=== PATIENT | male | born 1980 | race Caucasian/White ===

== ENCOUNTER 2017-09-01 14:09 | Emergency (ER) | payer MEDICAID, SELFPAY ==
[2017-09-01 14:40] VITALS: BP 115/88; PULSE 75; RESP 18; TEMP 37.1; O2SAT 98; BMI 21.1
[2017-09-01 14:54] LABS: UTC Influenza A Antigen Negative (Negative); UTC Influenza B Antigen Negative (Negative)
--- NOTE | 2017-09-01 15:25 | HMH.EDUTC ---
[facility] [place] Disposition Clinical Impression: Upper respiratory infection Qualifiers: URI type: unspecified URI Qualified Code(s): J06.9 - Acute upper respiratory infection, unspecified Disposition: Home, Self-Care Condition on Discharge: Good Instructions: Sore Throat, Cough Additional Instructions: * Monitor Temp. Tylenol and/or Ibuprofen as needed. ER if fever is no less than 101 despite alternating Tylenol and Ibuprofen * Encourage fluids, water, Gatorade, powerade, pedialyte if /toddler/or child * Warm salt water gargles for throat irritation *Warm fluids *Sore throat lozenges *Sleep elevated *humidifier or vaporizer Lots of rest Increase fluids, water, Gatorade, powerade *Flonase 2 sprays each nostril daily but may take 2-3 days to notice improvement with it *Bromfed may cause drowsiness. Know how it effect you or your child. Before driving, caring for small children or sending your child to school *Your throat swab was sent to lab for culture. Those results area typically sent to your primary care physician. Be sure to follow up in 2-3 days if no improvement so they can review those results and treat if necessary If you dont have primary care I recommend you get one, but in the mean time you will have to return to a walk in clinic Follow up IMMEDIATELY for new or worsening of symptoms OR no noticeable improvement over the next 48-72 hours. 911 immediately for any life threatening symptoms such as chest pain or difficulty breathing Prescriptions: Brompheniramine/Pseudoephed/Dm [Bromfed DM Cough Syrup 5mL] 10 ml PO Q4H #250 syrup Fluticasone Propionate [Flonase 50mcg nasal spray 16gm] 2 spr NS DAILY #1 bottle Referrals: Fabiana Kenney PA [Primary Care Provider] - Forms: Work/School Release Time of Disposition: 15:41 Medical Decision Making - Medical Records Medical records reviewed: Yes: I reviewed the patient's medical records. Vital Signs: 09/01/17 14:40 Temperature 98.8 F Temperature Source Temporal Artery Scan Pulse Rate [Left Brachial] 75 Respiratory Rate 18 Blood Pressure [Left Arm] 115/88 Blood Pressure Mean [Left Arm] 97 Blood Pressure Source [Left Arm] Automatic Cuff Blood Pressure Position [Left Arm] Sitting 02 Sat by Pulse Oximetry 98 Oxygen Delivery Method Room Air - Lab Data Lab Results 09/01/17 14:34: Influenza Type A Ag Negative, Influenza Type B Ag Negative Orders (Tests/Meds): ED MEDICATIONS Discontinued Medications Generic Name Dose Route Start Last Admin Trade Name [place] PRN Reason Stop Dose Admin Ceftriaxone Sodium 1 gm 09/01/17 15:38 Rocephin 1gm Vial IM 09/01/17 15:39 ONCE ONE Lidocaine HCl 0 ml 09/01/17 15:38 Lidocaine 1% 10ml Mdv IM 09/01/17 15:39 ONCE ONE Methylprednisolone Sodium Succinate 125 mg 09/01/17 15:38 Solu-Medrol 125mg/2ml Vial IM 09/01/17 15:39 ONCE ONE - Joshua Inquiry Pt receiving controlled substance: No Joshua was queried for this patient: No [facility] [place] HPI - General Stated complaint: fever,aches all over,hurts to breathe Mode of Arrival: Ambulatory Source of Information: Patient Limitations: No Limitations Description of Symptoms (Recalled from Triage Doc. by RN): C/O fever and bodyaches since Saturday HEENT Symptoms (Recalled from RN notes): No Resp Symptoms (Recalled from RN notes): No Skin Symptoms (Recalled from RN notes): No MS Symptoms (Recalled from RN notes): Yes (bodyaches) Functional Status (Recalled from RN notes): n/a - History of Present Illness Provider Complaint: Patient state that he has been having flu like symptoms since Saturday that has continued to get worse State that he thinks he may have the flu State that he has been having sore throat body aches, headache and just wanting to lay around State that he feels like he is having drainage in his throat that is making him cough so he came in to make sure he didn't have the flu - Related Data Previous Rx's Medicati
[2017-09-01 16:09] VITALS: BP 115/88; PULSE 75; RESP 18; TEMP 37.1; O2SAT 98
== END 2017-09-01 16:10 | disposition home or self-care (01) ==
PROVIDERS: Emergency Provider Nurse Practitioner; Family Provider Physician Assistant; PCP Physician Assistant
DX: J06.9 Acute upper respiratory infection, unspecified (principal); Z88.6 Allergy status to analgesic agent; Z88.5 Allergy status to narcotic agent; Z91.09 Other allergy status, other than to drugs and biological substances
CPT/HCPCS: 87804; 96372; 99203

== ENCOUNTER 2017-10-05 20:05 | Emergency (ER) | payer MEDICAID, SELFPAY ==
[2017-10-05 20:30] VITALS: BP 114/80; PULSE 82; RESP 18; TEMP 37.1; O2SAT 98; BMI 21.1
[2017-10-05 20:41] LABS: Apearance,Urine Clear (Clear); Blood, Urine 4+ (Negative); Color,Urine Yellow (Yellow); Glucose,Urine (UA) Negative (Negative); Ketones,Urine Negative (Negative); Protein,Urine Negative (Negative)
[2017-10-05 20:42] LABS: Bilirubin,Urine Negative (Negative); UTC Leukocyte Esterase,Urine Negative (Negative); UTC Nitrate,Urine Positive (Negative); Urobilinogen,Urine 0.2 EU/dl (0.2)
--- NOTE | 2017-10-05 20:55 | HMH.EDUTC ---
[facility] [place] Clinical Impression: Dysuria, Exposure to trichomonas Disposition: Home, Self-Care Condition on Discharge: Good Instructions: DI for Dysuria -- Adult, DI for Trichomoniasis Additional Instructions: * Based on your exposure, you were treated for trich but also based on your symptoms, you were treated for gonorrhea and chlamydia as well, other sexually transmitted diseases. It can take up to one week to have your results back for the sexually transmitted diseases but the urine culture and test for trich should be available on Saturday. Be SURE to follow up with primary care as discussed. Avoid intercourse until that follow up when you get results. Referrals: Fabiana Kenney PA [Primary Care Provider] - (Call Saturday and schedule follow up appt. Tell them you were in [facility], treated for dysuria after exposure to sexually transmitted disease but need to follow up for those results and urine culture results. ) Time of Disposition: 21:07 Medical Decision Making Vital Signs: 10/05/17 20:30 Temperature 98.7 F Temperature Source Temporal Artery Scan Pulse Rate [Right Radial] 82 Respiratory Rate 18 Blood Pressure [Right Arm] 114/80 Blood Pressure Mean [Right Arm] 91 02 Sat by Pulse Oximetry 98 Oxygen Delivery Method Room Air - Lab Data Lab results reviewed: Yes: I reviewed the patient's lab results. Lab Results 10/05/17 20:34: Urine Color Yellow, Urine Appearance Clear, Urine pH 7.0, Ur Specific [place] 1.010, Urine Protein Negative, Urine Glucose (UA) Negative, Urine Ketones Negative, Urine Blood 4+, Urine Nitrate Positive A, Urine Bilirubin Negative, Urine Urobilinogen 0.2, Ur Leukocyte Esterase Negative LOTUS, wet prep, Gc/ch, urine culture all pending. Pt to follow up with PCP for results on Saturday Orders (Tests/Meds): ED MEDICATIONS Discontinued Medications Generic Name Dose Route Start Last Admin Trade Name Freq PRN Reason Stop Dose Admin Azithromycin 1,000 mg 10/05/17 20:57 Zithromax 250mg Tablet PO 10/05/17 20:58 ONCE ONE Protocol Ceftriaxone Sodium 1 gm 10/05/17 20:57 Rocephin 1gm Vial IM 10/05/17 20:58 ONCE ONE Lidocaine HCl 0 ml 10/05/17 20:57 Lidocaine 1% 10ml Mdv IM 10/05/17 20:58 ONCE ONE Metronidazole 2,000 mg 10/05/17 21:01 Metronidazole 500mg Tablet PO 10/05/17 21:02 ONCE ONE Protocol ORDERS Category Date Time Status Urine Culture Stat Micro 10/05/17 21:02 Ordered - Joshua Inquiry Pt receiving controlled substance: No [facility] [place] HPI - General Stated complaint: burning when urinating Time Seen by Provider: 10/05/17 20:45 Mode of Arrival: Family Vehicle Source of Information: Patient Limitations: No Limitations Description of Symptoms (Recalled from Triage Doc. by RN): PT C/O FREQUENCY AND SOME BURNING WITH URINATION THAT STARTED 2-3 DAYS AGO. PT STATES HE IS HAVING MILD FLANK PAIN. HEENT Symptoms (Recalled from RN notes): No Resp Symptoms (Recalled from RN notes): No Skin Symptoms (Recalled from RN notes): No MS Symptoms (Recalled from RN notes): Yes (MILD FLANK PAIN) Functional Status (Recalled from RN notes): NA - History of Present Illness Provider Complaint: c/o dysuria x 2-3 days with mild intermittent flank pain. Hx of kidney stones but states that this is not similiar. Urinary frequency, hesitancy. No change in urine characteristics. Sexually active. Unprotected. On female only x 5 years. Reports she tested positive for trich 5-7 days ago he thinks but they haven't been sexually active since. No treatment before arrival. - Related Data Previous Rx's Medication Instructions Recorded Brompheniramine/Pseudoephed/Dm 10 ml PO Q4H #250 syrup 09/01/17 [Bromfed DM Cough Syrup 5mL] Fluticasone Propionate [Flonase 2 spr NS DAILY #1 bottle 09/01/17 50mcg nasal spray 16gm] Allergies Allergy/AdvReac Type Severity Reaction Status Date / Time acetaminophen Allergy Unknown Verifi
--- NOTE | 2017-10-05 21:02 | ED_ITS ---
[facility] [place] Disposition Clinical Impression: Dysuria, Exposure to trichomonas Disposition: Home, Self-Care Condition on Discharge: Good Instructions: DI for Dysuria -- Adult, DI for Trichomoniasis Additional Instructions: * Based on your exposure, you were treated for trich but also based on your symptoms, you were treated for gonorrhea and chlamydia as well, other sexually transmitted diseases. It can take up to one week to have your results back for the sexually transmitted diseases but the urine culture and test for trich should be available on Saturday. Be SURE to follow up with primary care as discussed. Avoid intercourse until that follow up when you get results. Referrals: Fabiana Kenney PA [Primary Care Provider] - (Call Saturday and schedule follow up appt. Tell them you were in [place], treated for dysuria after exposure to sexually transmitted disease but need to follow up for those results and urine culture results. ) Time of Disposition: 21:07 Medical Decision Making Vital Signs: 10/05/17 20:30 Temperature 98.7 F Temperature Source Temporal Artery Scan Pulse Rate [Right Radial] 82 Respiratory Rate 18 Blood Pressure [Right Arm] 114/80 Blood Pressure Mean [Right Arm] 91 02 Sat by Pulse Oximetry 98 Oxygen Delivery Method Room Air - Lab Data Lab results reviewed: Yes: I reviewed the patient's lab results. Lab Results 10/05/17 20:34: Urine Color Yellow, Urine Appearance Clear, Urine pH 7.0, Ur Specific [place] 1.010, Urine Protein Negative, Urine Glucose (UA) Negative, Urine Ketones Negative, Urine Blood 4+, Urine Nitrate Positive A, Urine Bilirubin Negative, Urine Urobilinogen 0.2, Ur Leukocyte Esterase Negative LOTUS, wet prep, Gc/ch, urine culture all pending. Pt to follow up with PCP for results on Saturday Orders (Tests/Meds): ED MEDICATIONS Discontinued Medications Generic Name Dose Route Start Last Admin Trade Name Freq PRN Reason Stop Dose Admin Azithromycin 1,000 mg 10/05/17 20:57 Zithromax 250mg Tablet PO 10/05/17 20:58 ONCE ONE Protocol Ceftriaxone Sodium 1 gm 10/05/17 20:57 Rocephin 1gm Vial IM 10/05/17 20:58 ONCE ONE Lidocaine HCl 0 ml 10/05/17 20:57 Lidocaine 1% 10ml Mdv IM 10/05/17 20:58 ONCE ONE Metronidazole 2,000 mg 10/05/17 21:01 Metronidazole 500mg Tablet PO 10/05/17 21:02 ONCE ONE Protocol ORDERS Category Date Time Status Urine Culture Stat Micro 10/05/17 21:02 Ordered - Joshua Inquiry Pt receiving controlled substance: No [facility] [place] HPI - General Stated complaint: burning when urinating Time Seen by Provider: 10/05/17 20:45 Mode of Arrival: Family Vehicle Source of Information: Patient Limitations: No Limitations Description of Symptoms (Recalled from Triage Doc. by RN): PT C/O FREQUENCY AND SOME BURNING WITH URINATION THAT STARTED 2-3 DAYS AGO. PT STATES HE IS HAVING MILD FLANK PAIN. HEENT Symptoms (Recalled from RN notes): No Resp Symptoms (Recalled from RN notes): No Skin Symptoms (Recalled from RN notes): No MS Symptoms (Recalled from RN notes): Yes (MILD FLANK PAIN) Functional Status (Recalled from RN notes): NA - History of Present Illness Provider Complaint: c/o dysuria x 2-3 days with mild intermittent flank pain. Hx of kidney stones but states that this is not similiar.
[2017-10-05 21:39] VITALS: BP 110/82; PULSE 79; RESP 18; TEMP 37; O2SAT 99
[2017-10-10 11:58] LABS: Neisseria gonorrhoeae, NAA Negative (Negative)
== END 2017-10-05 21:47 | disposition home or self-care (01) ==
PROVIDERS: Emergency Provider Nurse Practitioner Family; Family Provider Physician Assistant; PCP Physician Assistant
DX: R30.0 Dysuria (principal); Z20.2 Contact with and (suspected) exposure to infections with a predominantly sexual mode of transmission; F17.210 Nicotine dependence, cigarettes, uncomplicated; Z88.6 Allergy status to analgesic agent; Z88.8 Allergy status to other drugs, medicaments and biological substances
CPT/HCPCS: 81003; 87086; 87210; 87220; 87491; 87591; 96372; 99202

== ENCOUNTER 2017-10-27 17:53 | Emergency (ER) | payer MEDICAID, SELFPAY ==
[2017-10-27 18:04] VITALS: BP 138/79; PULSE 80; RESP 20; TEMP 37.3; O2SAT 100; BMI 20.4
[2017-10-27 18:40] LABS: Apearance,Urine Clear (Clear); Color,Urine Yellow (Yellow); PH,Urine 6.5 (5.0-8.5)
[2017-10-27 18:41] LABS: Bilirubin,Urine Negative (Negative); Blood, Urine 3+ (Negative); Glucose,Urine (UA) Negative (Negative); Ketones,Urine Negative (Negative); Protein,Urine Negative (Negative); UTC Leukocyte Esterase,Urine Negative (Negative); UTC Nitrate,Urine Positive (Negative); Urobilinogen,Urine 0.2 EU/dl (0.2)
--- NOTE | 2017-10-27 18:44 | HMH.EDUTC ---
[facility] [place] Disposition Clinical Impression: UTI (urinary tract infection) Qualifiers: Urinary tract infection type: site unspecified Hematuria presence: with hematuria Qualified Code(s): N39.0 - Urinary tract infection, site not specified; R31.9 - Hematuria, unspecified Disposition: Home, Self-Care Condition on Discharge: Good Instructions: Urinary Tract Infection Additional Instructions: Stop taking Ciprofloxin and began taking Bactrim as prescribed Follow up with family doctor in 24-48 hours for results of urine culture to make sure that you are on the appropriate antibiotic Straight to ER if any worsening of pain, blood in urine or fever that is not easily controlled with medication REturn if needed Prescriptions: Sulfamethoxazole/Trimethoprim [Bactrim DS tablet] 1 each PO BID #20 tab Referrals: Fabiana Kenney PA [Primary Care Provider] - Time of Disposition: 19:12 Medical Decision Making - Medical Records Medical records reviewed: Yes: I reviewed the patient's medical records. - Joshua Inquiry Pt receiving controlled substance: No Joshua was queried for this patient: No Vital Signs: 10/27/17 18:04 Temperature 99.2 F Temperature Source Temporal Artery Scan Pulse Rate [Right Brachial] 80 Respiratory Rate 20 Blood Pressure [Right Arm] 138/79 Blood Pressure Mean [Right Arm] 98 Blood Pressure Source [Right Arm] Automatic Cuff Blood Pressure Position [Right Arm] Sitting 02 Sat by Pulse Oximetry 100 Oxygen Delivery Method Room Air - Lab Data Lab results reviewed: Yes: I reviewed the patient's lab results. Lab Results 10/27/17 17:58: Urine Color Yellow, Urine Appearance Clear, Urine pH 6.5, Ur Specific [place] 1.020, Urine Protein Negative, Urine Glucose (UA) Negative, Urine Ketones Negative, Urine Blood 3+, Urine Nitrate Positive A, Urine Bilirubin Negative, Urine Urobilinogen 0.2, Ur Leukocyte Esterase Negative - Reevaluation(s) Time: 18:59 Reevaluation #1: State that cipro is upseting his stomach and he doesn't feel like its working Still having burning with Urination Urine collected and sent to lab for culture, patient advised to follow up with family doctor in 24-48 hours for urine culture results and further evaluation advised to stop taking the Cipro and began taking Bactrim for UTI Patient has ultrasound scheduled awaiting appointment [facility] [place] HPI - General Stated complaint: burning when urinating Time Seen by Provider: 10/27/17 18:15 Mode of Arrival: Family Vehicle Source of Information: Patient Limitations: No Limitations Description of Symptoms (Recalled from Triage Doc. by RN): C/O PELVIC PAIN AND PAINFUL URINATION. BEING TREATED FOR UTI SINCE 10/24/17 HEENT Symptoms (Recalled from RN notes): No Resp Symptoms (Recalled from RN notes): No Skin Symptoms (Recalled from RN notes): No MS Symptoms (Recalled from RN notes): No Functional Status (Recalled from RN notes): N/A - History of Present Illness Provider Complaint: Patient state that he has been having burning with urination and was seen and treated by family doctor State that he has been taking the medication as it was prescribed State that he has taken all the medication that turned his pee orange and wanted to know if he needed more. State that also he sometimes has pain in his groin area that is worse when he walks States that that pain is not there all the time it just comes and goes State that it is not hurting now though - Related Data Home Medications Medication Instructions Recorded Confirmed Fluoxetine HCl [Prozac 20mg 20 mg PO DAILY 10/27/17 10/27/17 Capsule] Naproxen 500 mg PO Q12H 10/27/17 10/27/17 Previous Rx's Medication Instructions Recorded phenazopyridine 200 mg tablet 200 mg PO BID PRN #10 tab 10/24/17 Sulfamethoxazole/Trimethoprim 1 each PO BID #20 tab 10/27/17 [Bactrim DS tablet] Allergies Allergy/AdvReac Type Severity Reaction Status Date / Time acetaminophen Allergy Unknown Verified
[2017-10-27 19:17] VITALS: BP 132/72; PULSE 78; RESP 20; TEMP 37.2; O2SAT 100
== END 2017-10-27 19:18 | disposition home or self-care (01) ==
PROVIDERS: Emergency Provider Nurse Practitioner; Family Provider Physician Assistant; PCP Physician Assistant
DX: N39.0 Urinary tract infection, site not specified (principal); F17.210 Nicotine dependence, cigarettes, uncomplicated; Z88.6 Allergy status to analgesic agent
CPT/HCPCS: 81003; 87086; 99201

== ENCOUNTER → 2017-10-31 11:11 | Outpatient (CLI) | payer MEDICAID, SELFPAY ==
[2017-10-31 17:50] LABS: Basophils % 0.5 % (0.1-2.0); Eosinophils # 0.1 K/mm3 (0.0-0.4); Eosinophils % 1.6 % (0.1-12.0); Hemoglobin 13.2 g/dL (14.1-18.0); Lymphocytes # 1.2 K/mm3 (0.7-4.5); Lymphocytes % 26.6 K/mm3 (10-50); Mean Corpuscular HGB Conc 32.9 g/dL (31.8-35.4); Mean Corpuscular Hemoglobin 31.2 pg (27.0-31.2); Mean Corpuscular Volume 94.9 fl (80-94); Mean Platelet Volume 7.9 fl (7.4-10.4); Monocytes # 0.4 K/mm3 (0.1-1.0); Monocytes % 8.4 % (1.7-9.3); Neutrophils # 2.9 K/mm3 (1.8-7.8); Neutrophils % 62.9 % (37.0-80.0); Platelet Count 209 K/mm3 (142-424); Red Blood Count 4.21 M/mm3 (4.60-6.20); White Blood Count 4.6 K/mm3 (4.8-10.8)
[2017-10-31 18:30] LABS: Alanine Aminotransferase 40 U/L (12-78); Albumin/Globulin Ratio 1.3 (1.1-1.8); Alkaline Phosphatase 59 U/L (46-116); Anion Gap 10.3 mEq/L (5-15); Aspartate Amino Transferase 30 U/L (15-37); Bilirubin,Total 0.5 mg/dL (0.2-1.0); Blood Urea Nitrogen 12 mg/dL (7-18); Calcium 8.9 mg/dL (8.5-10.1); Carbon Dioxide 29 mmol/L (21.0-32.0); Chloride 103 mmol/L (98-107); Creatinine,Serum 0.79 mg/dL (0.70-1.30); Estimated Glomerular Filt Rate 110 ml/min (>60); GFR (African American) 134 ML/MIN (>60); Globulin 3.2 gm/dl (1.3-3.2); Glucose 98 mg/dL (74-106); Potassium 4.3 mmoL/L (3.5-5.1); Sodium 138 mmol/L (136-145); Total Protein,Serum 7.2 gm/dL (6.4-8.2)
[2017-11-02 18:39] LABS: Rapid Plasma Reagin Ab Titer Non Reactive (NonRea<1:1)
== END ==
PROVIDERS: Visit Provider Physician Assistant
DX: R30.0 Dysuria (principal)
CPT/HCPCS: 80053; 85025; 86592

== ENCOUNTER → 2017-11-08 12:58 | Outpatient (CLI) | payer MEDICAID, SELFPAY ==
--- NOTE | 2017-11-08 13:02 | US_ITS ---
US kidney retroperitoneal comp Ordering Physician: SYDNI Ferraro Patient Age: 37 years: Male HISTORY: ITS.REASON: dysuriaThis area history of stones Hematuria TECHNIQUE: Ultrasound kidneys COMPARISON : CT abdomen pelvis 12/29/2016 FINDINGS No hydronephrosis nor mass in either kidney. No obstruction evident. Good color Doppler flow to both kidneys. Normal upper normal echogenicity of cortex within normal limits. No good evidence of kidney stones nor obstruction on today's study.. Small punctate kidney stones noted on prior December 2016 CT. Today's ultrasound shows no definitive echogenic stone. The other only question possible small 2 mm stone towards lower pole calyx on the on one image but this is equivocal and not confirmed on other images of the same region.. RIGHT KIDNEY: 12 cm length x 3.5 cm x 6.2 cm wide. Gross Estimate of volume 1 35-mL by ultrasound algorithm LEFT KIDNEY 10.6 cm length as 5 cm AP x 4.5 cm wide. Gross estimate of volume 1 26-mL by ultrasound algorithm ==== IMPRESSION: ====== 1. Kidneys appear normal in size with no hydronephrosis nor mass. No acute findings. 2. I see no definitive echogenic stones. Note: There was one image with questionable echogenic area which corresponds with a upper normal calyx at lower pole left kidney, seen on one image only in this does not persist on other views. Thus doubt of is real finding & Doubt of significance
== END ==
PROVIDERS: Family Provider Physician Assistant; PCP Physician Assistant; Visit Provider Physician Assistant
DX: R30.9 Painful micturition, unspecified (principal)
CPT/HCPCS: 76770

== ENCOUNTER 2020-01-01 12:09 | Emergency (ER) | payer MEDICAID, SELFPAY ==
[2020-01-01 12:19] VITALS: BP 113/83; PULSE 102; RESP 18; TEMP 36.7; O2SAT 99; BMI 19.8
--- NOTE | 2020-01-01 12:23 | HMH.EDGENADL ---
ED Disposition Clinical Impression: Occupational exposure to chemicals, Impacted cerumen of both ears, Acute chemical bronchitis, Nasopharyngitis Disposition: Home, Self-Care Condition on Discharge: Good Additional Instructions: Discuss your symptoms with your employer, they seem to be related to inhalation of primer vapors and your mask. Follow-up with your primary care provider if symptoms persist. Follow-up with ENT, Dr. Rowan, for wax impactions in your ears. Referrals: Fabiana Kenney PA [Primary Care Provider] - Rodri Rowan MD [Staff Physician] - - Critical Care Critical Care Time: No Attestation: On , the high probability of a clinically significant, sudden or life threatening deterioration of the following system(s) required my full and direct attention, intervention and personal management. The time I documented below is in addition to time spent performing reported procedures but includes the following listed in this critical care notation. Medical Decision Making - Joshua Inquiry Pt receiving controlled substance: No Vital Signs: 01/01/20 12:19 Temperature 98.1 F Temperature Source Oral Pulse Rate [Right Radial] 102 H Respiratory Rate 18 Blood Pressure [Right Arm] 113/83 Blood Pressure Mean [Right Arm] 93 Blood Pressure Source [Right Arm] Automatic Cuff Blood Pressure Position [Right Arm] Sitting 02 Sat by Pulse Oximetry 99 Oxygen Delivery Method Room Air General Adult HPI - General Stated complaint: burn in lungs and nose Time Seen by Provider: 01/01/20 12:23 - History of Present Illness HPI narrative: The patient complains of a burning sensation in his nose, throat, and lungs for 1 week. He relates it to occurring when he puts on his mask at work and being exposed to primer fumes at work. He has been having to wear a mask since the COVID pandemic began. He is concerned about COVID. He does not have fever, cough, or rhinorrhea. He says his ears have been hurting. No known specific exposure to COVID or other illnesses. - Related Data Allergies Allergy/AdvReac Type Severity Reaction Status Date / Time acetaminophen Allergy Unknown Verified 06/08/18 19:37 [From DARVOCET-N] codeine [CODEINE] Allergy Unknown Verified 06/08/18 19:37 etodolac [ETODOLAC] Allergy Unknown Verified 06/08/18 19:37 naproxen [From NAPROSYN] Allergy Unknown Verified 06/08/18 19:37 propoxyphene Allergy Unknown Verified 06/08/18 19:37 [From DARVOCET-N] tramadol [TRAMADOL] Allergy Unknown Verified 06/08/18 19:37 [facility] History - Hepatitis A Screen Attestation statement:: This patient has been screened for Hepatitis A risk factors. I have reviewed the patient's past medical history: Yes Medical History: Denies:: Cancer, Diabetes Mellitus Type 1, Diabetes Mellitus Type 2, Hypertension, MRSA Other Medical History: Reports: Other Other Surgeries: Yes: Other Amputation: No Fractures: Yes (ARM) - Social History Smoking Status: Current every day smoker Tobacco Type: cigarettes # Packs/Day (cigarettes): 1 Alcohol Intake: never Substance Use Type: denies use Occupational Status: other Housing: apartment Family Hx:: No significant family history ROS Obtained: Yes All systems reviewed & no additional complaints - Constitutional Constitutional: Denies fever(s) - ENT Ears, Nose, Mouth, and Throat: Reports as per HPI, Reports otalgia - Respiratory Respiratory: No cough, Yes other ( Lungs burn ) Physical Exam - General General appearance: alert, in no apparent distress - Head Head exam: atraumatic, normocephalic - Eye Eye exam: Present: normal appearance, PERRL, EOMI - ENT ENT exam: Present: normal oropharynx, mucous membranes moist, other (Bilateral cerumen impactions) - Neck Neck exam: Present: normal inspection, full ROM, trachea midline - Chest Chest inspection: Present: normal inspection, symmetric chest wall rise - Respiratory Respiratory exam: Presen
[2020-01-01 12:50] VITALS: BP 123/87; PULSE 85; RESP 20; TEMP 36.8; O2SAT 98
== END 2020-01-01 12:51 | disposition home or self-care (01) ==
PROVIDERS: Emergency Provider Emergency Medicine; PCP Physician Assistant
DX: J68.0 Bronchitis and pneumonitis due to chemicals, gases, fumes and vapors (principal); J00 Acute nasopharyngitis [common cold]; Z77.098 Contact with and (suspected) exposure to other hazardous, chiefly nonmedicinal, chemicals; H61.23 Impacted cerumen, bilateral; F17.210 Nicotine dependence, cigarettes, uncomplicated; Z88.5 Allergy status to narcotic agent; Z88.6 Allergy status to analgesic agent
CPT/HCPCS: 99281